=== PATIENT | female | born 1980 | race Caucasian/White ===

== ENCOUNTER 2017-08-18 09:08 | Emergency (ER) | payer OTHER ==
[2017-08-18 09:29] VITALS: BP 116/79
--- NOTE | 2017-08-18 09:44 | ED Physician Documentation ---
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 Onset: days ago (2) Duration: intermittent episodes Context: denies: recent foreign travel, insect bite(s) Severity: mild, moderate Associated Symptoms: fever, chills, earache (kt), runny nose, sinus pain - ROS CONST/EYES: weakness. denies: eye redness, eye itching CVS/RESP: other (mild cough non productive) LYMPH: denies: leg swelling, rash, swollen glands GI/: denies: abdominal pain, problems urinating, vomiting, nausea MS/SKIN: joint pain - PAST HX Lung Disease: other PE Risk Factors: hypertension Surgeries/Procedures: other (sinus) Immunizations: influenza Allergies/Adverse Reactions: Allergies Allergy/AdvReac Type Severity Reaction Status Date / Time Sulfa (Sulfonamide Allergy Rash Verified 08/18/17 09:29 Antibiotics) Home Medications: Ambulatory Orders Medication Instructions Recorded Sertraline HCl [Zoloft] 50 mg PO QD 04/02/13 Cetirizine HCl/Pseudoephedrine 1 each PO BID #20 [id number] 05/27/13 [Zyrtec-D Tablet] - SOCIAL HX Smoking History: cigarettes Alcohol Use: none Drug Use: none - FAMILY HX Family History: no significant history - VITAL SIGNS Vital Signs: Vital Signs Temp Pulse Resp BP Pulse Ox 98.1 F 93 H 16 116/79 99 08/18/17 09:24 08/18/17 09:24 08/18/17 09:24 08/18/17 09:24 08/18/17 09:24 - REVIEWED ASSESSMENTS Nursing Assessment Reviewed: Yes Vitals Reviewed: Yes Upper Respiratory Symptoms - EXAM General Appearance: mild distress EENT: eyes nml inspection, pain over sinuses. No: TM erythema, TM dullness (R) , TM dullness (L), pharyngeal erythema Neck: normal inspection Respiratory: no resp. distress, breath sounds nml, speaks full sentences Abdomen: non-tender, no distention CVS: reg rate & rhythm, heart sounds normal Skin: color nml, no rash, warm,dry. No: cyanosis, diaphoresis, pallor Extremities: non-tender, normal range of motion Neuro/Psych: oriented x3, mood/affect nml Discharge Clincal Impression: influenza non a/b Referrals: Primary Doctor,No [Primary Care Provider] - 2 Days Comments: good health lmeadsures cold landy rest vits bal nut hi water Condition: Good Disposition: 01 HOME, SELF-CARE Decision to Admit: NO Decision Time: 09:47
== END 2017-08-18 09:45 | disposition home or self-care (01) ==
LOC: ED 09:08
DX: J11.1 Influenza due to unidentified influenza virus with other respiratory manifestations (principal)
CPT/HCPCS: 87400; 99282